=== PATIENT | male | born 1975 | race Caucasian/White ===

== ENCOUNTER 2021-02-04 01:58 | Inpatient (IN) ==
[2021-02-04 03:00] LABS: Bilirubin,Urine Negative (Negative); Blood,Urine Negative (Negative); Clarity,Urine Clear (Clear); Color,Urine Yellow (Yellow); Glucose,Urine (UA) Normal (Normal); Ketones,Urine 10 mg/dL (Negative); Leukocyte Esterase,Urine Negative (Negative); Mucus,Urine Few per lpf (None-Few); Nitrite,Urine Negative (Negative); PH,Urine 6.5 pH Units (5.0-8.0); Protein,Urine 50 mg/dL (Neg-Trace); RBC,Urine 0-3 per hpf (0-3); Specific Gravity,Urine > 1.030 (1.010-1.025); WBC,Urine 0-3 per hpf (0-3)
[2021-02-04 03:11] LABS: Amphetamine Screen,Urine Positive ng/mL (Cutoff=1000); Barbiturate Screen,Urine Negative ng/mL (Cutoff=200); Benzodiazepines Screen,Urine Negative ng/mL (Cutoff=200); Cannabinoid Screen,Urine Positive ng/mL (Cutoff = 50); Cocaine Screen,Urine Negative ng/mL (Cutoff= 300); Opiate Screen,Urine Negative ng/mL (Cutoff=300); Phencyclidine Screen,Urine Negative ng/mL (Cutoff=25)
[2021-02-04 06:31] LABS: Influenza A PCR Negative (Negative); Influenza B PCR Negative (Negative); Resp. Syncytial Virus PCR Negative (Negative)
[2021-02-04 06:33] LABS: SARS-CoV-2 by PCR (In House) Negative (Negative)
[2021-02-04] MEDS ORDERED: Haloperidol Lactate 5 MG/ML VIAL IM PRN (13:39)
[2021-02-04] MEDS ORDERED: MOM Conc 10 ML UD.LIQ PO PRN (13:39)
[2021-02-04] MEDS ORDERED: *HR* LORazepam 2 MG/ML VIAL IM PRN (13:39)
[2021-02-04] MEDS ORDERED: *HR* LORazepam 1 MG TABLET PO PRN (13:39)
[2021-02-04] MEDS ORDERED: haloperidoL 5 MG TABLET PO PRN (13:39)
[2021-02-04] MEDS ORDERED: Mag Hydrox/Al Hydrox/Simeth 30 ML UDC PO PRN (13:39)
[2021-02-04] MEDS: hydrOXYzine pamoate 25 MG CAPSULE PO PRN (16:34)
[2021-02-04] MEDS: cephALEXin 500 MG CAPSULE PO SCH ×3 (16:36→20:31)
[2021-02-04] MEDS: Sulfamethoxazole/Trimeth DS 1 EACH TABLET PO SCH ×2 (17:02→20:31)
[2021-02-04] MEDS: Acetaminophen 325 MG TABLET PO PRN (20:32)
[2021-02-04] MEDS: traZODone 50 MG TABLET PO PRN (20:35)
[2021-02-05] MEDS: Ibuprofen 800 MG TABLET PO PRN (04:54)
[2021-02-05] MEDS: Sulfamethoxazole/Trimeth DS 1 EACH TABLET PO SCH ×5 (09:28→22:00)
[2021-02-05] MEDS: cephALEXin 500 MG CAPSULE PO SCH ×5 (09:28→22:00)
[2021-02-05] MEDS: Acetaminophen 325 MG TABLET PO PRN (10:19)
[2021-02-05] MEDS: ARIPiprazole 5 MG TABLET PO SCH (10:27)
[2021-02-06] MEDS: Sulfamethoxazole/Trimeth DS 1 EACH TABLET PO SCH ×2 (08:29→20:14)
[2021-02-06] MEDS: cephALEXin 500 MG CAPSULE PO SCH ×4 (08:29→20:14)
[2021-02-06] MEDS: ARIPiprazole 5 MG TABLET PO SCH ×2 (08:30→20:14)
[2021-02-06] MEDS: Acetaminophen 325 MG TABLET PO PRN (08:31)
[2021-02-06] MEDS: Ibuprofen 800 MG TABLET PO PRN ×2 (12:32→20:15)
[2021-02-06] MEDS: hydrOXYzine pamoate 25 MG CAPSULE PO PRN (20:15)
[2021-02-07] MEDS: cephALEXin 500 MG CAPSULE PO SCH ×4 (09:24→20:54)
[2021-02-07] MEDS: ARIPiprazole 5 MG TABLET PO SCH ×2 (09:24→20:54)
[2021-02-07] MEDS: Sulfamethoxazole/Trimeth DS 1 EACH TABLET PO SCH ×2 (09:24→20:54)
[2021-02-07] MEDS: Nicotine 2 MG GUM BC PRN (15:18)
[2021-02-07] MEDS: Ibuprofen 800 MG TABLET PO PRN (16:48)
[2021-02-07] MEDS: Acetaminophen 325 MG TABLET PO PRN (19:31)
[2021-02-07] MEDS: traZODone 50 MG TABLET PO PRN (20:55)
[2021-02-07] MEDS: hydrOXYzine pamoate 25 MG CAPSULE PO PRN (20:55)
[2021-02-07] MEDS ORDERED: Divalproex (24 HR) 500 MG TABLET PO SCH (21:00)
[2021-02-08] MEDS: Ibuprofen 800 MG TABLET PO PRN ×2 (02:16→15:51)
[2021-02-08] MEDS: traZODone 50 MG TABLET PO PRN (02:16)
[2021-02-08] MEDS: Sulfamethoxazole/Trimeth DS 1 EACH TABLET PO SCH (08:22)
[2021-02-08] MEDS: ARIPiprazole 5 MG TABLET PO SCH (08:22)
[2021-02-08] MEDS: cephALEXin 500 MG CAPSULE PO SCH ×3 (08:22→16:21)
[2021-02-08 09:18] VITALS: BP 131/80; PULSE 112; TEMP 98.4; O2SAT 98
[2021-02-08] MEDS: Acetaminophen 325 MG TABLET PO PRN (10:48)
[2021-02-08] MEDS: hydrOXYzine pamoate 25 MG CAPSULE PO PRN (10:49)
[2021-02-08] MEDS: Nicotine 2 MG GUM BC PRN ×2 (13:47→17:18)
== END 2021-02-08 18:30 | disposition home or self-care (01) | DRG 754 ==
LOC: EMEROOARM 01:58 → 1ANU 13:05
PROVIDERS: ADMIT Psychiatry & Neurology Psychiatry; ATTEND Psychiatry & Neurology Psychiatry